=== PATIENT | male | born 1965 | race Caucasian/White ===

== ENCOUNTER → 2023-02-02 | Outpatient (CLI) | payer BC ==
--- NOTE | 2023-02-02 12:33 | XR ---
EXAMINATION TYPE: XR knee complete LT DATE OF EXAM: 02/02/2023 COMPARISON: None HISTORY: Pain TECHNIQUE: 3 view left knee FINDINGS: Joint spaces are preserved. No acute fractures or dislocations are evident. No joint effusi on is evident. Follow up exams can be performed 7-10 days from acute trauma for continued pain IMPRESSION: 1. Unremarkable 3 view left knee
== END | disposition home or self-care (01) ==
LOC: RADXRYALE 09:26
PROVIDERS: ATTEND Family Medicine
DX: M25.562 Pain in left knee (principal)